=== PATIENT | female | born 1975 | race Caucasian/White ===

== ENCOUNTER 2021-09-09 09:23 | Emergency (ER) | payer BC, SELFPAY ==
[2021-09-09 10:18] VITALS: BP 139/98; PULSE 101; RESP 16; TEMP 36.9; O2SAT 97; BMI 35.1
--- NOTE | 2021-09-09 10:21 | HMH.EDUTC ---
[facility] [place] Disposition Clinical Impression: Sinusitis Qualifiers: Sinusitis location: unspecified location Chronicity: acute Recurrence: non-recurrent Qualified Code(s): J01.90 - Acute sinusitis, unspecified Disposition: Home, Self-Care Condition on Discharge: Good Instructions: Sinusitis, DI for Sinusitis Additional Instructions: Drink plenty of fluids. Take tylenol or ibuprofen for pain or fever. Take the medications as directed. Follow up with your regular doctor. GO TO THE ER FOR ANY WORSENING SYMPTOMS Don't start the oral steroids until tomorrow, since you had the shot here today. The cough medication (promethazine dm) will make you drowsy, so don't drive or operate heavy machinery after taking it. The promethazine dm cough syrup and the tessalon perles are for in case you start having a worsening cough. You may not even need to get them from the pharmacy, but they will be there if you need them. Prescriptions: Promethazine/Dextromethorphan [Promethazine-Dm Syrup] 5 ml PO Q6HP PRN #240 ml PRN Reason: Cough [facility]: [facility] Benzonatate [Benzonatate 100mg cap] 100 mg PO TIDP PRN #30 cap PRN Reason: Cough [facility]: [facility] cefUROXime axetiL [Ceftin 500mg Tab (GEQ)] 500 mg PO BID #20 tab Transmission [facility]: [facility] methylPREDNISolone [Medrol] 4 mg PO DIRECTED 6 Days #21 packet Transmission Status: [facility] guaiFENesin [Mucinex 600mg tablet] 1 - 2 tab PO BIDP PRN #30 tab PRN Reason: Congestion Transmission Status: Received by [facility] Referrals: Provider,Referral, [Primary Care Provider] - Time of Disposition: 10:58 Medical Decision Making - Medical Records Medical records reviewed: No: I reviewed the patient's medical records. - Artemio Inquiry Pt receiving controlled substance: No Vital Signs: 09/09/21 10:18 09/09/21 11:07 Temperature 98.5 F 98.5 F Temperature Source Oral Oral Pulse Rate 101 H Pulse Rate [Left Radial] 101 H Respiratory Rate 16 16 Blood Pressure 139/98 H Blood Pressure [Right Arm] 139/98 H Blood Pressure Mean [Right Arm] 111 02 Sat by Pulse Oximetry 97 Oxygen Delivery Method Room Air - Lab Data Lab results reviewed: Yes: I reviewed the patient's lab results. Orders (Tests/Meds): ED MEDICATIONS Discontinued Medications Generic Name Dose Route Start Last Admin Trade Name Freq PRN Reason Stop Dose Admin Ceftriaxone Sodium 1 gm 09/09/21 10:53 09/09/21 11:06 Ceftriaxone 1gm Vial IM 09/09/21 10:54 1 gm ONCE ONE Administration Lidocaine HCl 0 ml 09/09/21 10:53 09/09/21 11:05 Lidocaine 1% 5ml Pf Vial IM 09/09/21 10:54 2 ml ONCE ONE Administration Methylprednisolone Sodium Succinate 125 mg 09/09/21 10:53 09/09/21 11:06 Methylprednisolone Sod Succ 125mg Vial IM 09/09/21 10:54 125 mg ONCE ONE Administration [facility] [place] HPI - General Stated complaint: sinus pressure, congestion, cough Time Seen by Provider: 09/09/21 10:21 - History of Present Illness Provider Complaint: She c/o sore throat, chills, low grade fever for the past 2 days. - Related Data Home Medications Medication Instructions Recorded Confirmed cetirizine 10 mg capsule 10 mg PO DAILY 04/11/18 02/22/19 esomeprazole magnesium 20 mg 20 mg PO DAILY 04/11/18 02/22/19 capsule,delayed release levothyroxine 125 mcg tablet 125 mcg PO 30 Days tab 04/11/18 02/22/19 fluoxetine 20 mg capsule 10 mg PO DAILY cap 02/22/19 02/22/19 Previous Rx's Medication Instructions Recorded cephalexin 500 mg capsule 500 mg PO BID 10 Days #20 cap 02/22/19 Benzonatate [Benzonatate 100mg 100 mg PO TIDP PRN #30 cap 09/09/21 cap] Promethazine/Dextromethorphan 5 ml PO Q6HP PRN #240 ml 09/09/21 [Promethazine-Dm Syrup] cefUROXime axetiL [Ceftin 500mg 500 mg PO BID #20 tab 09/09/21 Tab (GEQ)] Merry
[2021-09-09 11:07] VITALS: BP 139/98; PULSE 101; RESP 16; TEMP 36.9
== END 2021-09-09 11:09 | disposition home or self-care (01) ==
PROVIDERS: Emergency Provider Nurse Practitioner Family
DX: J01.90 Acute sinusitis, unspecified (principal); E03.9 Hypothyroidism, unspecified; F32.A Depression, unspecified; F41.9 Anxiety disorder, unspecified; Z79.52 Long term (current) use of systemic steroids; Z79.899 Other long term (current) drug therapy; Z88.0 Allergy status to penicillin; Z88.1 Allergy status to other antibiotic agents; Z88.3 Allergy status to other anti-infective agents; Z88.5 Allergy status to narcotic agent; Z82.49 Family history of ischemic heart disease and other diseases of the circulatory system; Z83.3 Family history of diabetes mellitus; Z83.438 Family history of other disorder of lipoprotein metabolism and other lipidemia
CPT/HCPCS: 96372; 96375; 99213; G0463; J0696